=== PATIENT | male | born 1950 | race Caucasian/White ===

== ENCOUNTER → 2016-09-14 | Outpatient (REF) | payer BC | LOC: M LABNEURO 15:46 | PROVIDERS: ATTEND Psychiatry & Neurology Neurology | DX: I63.9 Cerebral infarction, unspecified (principal) ==

== ENCOUNTER → 2016-10-22 | Outpatient (CLI) | payer BC ==
[2016-10-26 00:06] LABS: SJOGREN'S ANTI SS-A <0.2 AI (0.0-0.9); SJOGREN'S ANTI SS-B <0.2 AI (0.0-0.9)
== END ==
LOC: M LAB 13:48
PROVIDERS: ATTEND Psychiatry & Neurology Neurology
DX: R76.9 Abnormal immunological finding in serum, unspecified (principal)